=== PATIENT | female | born 1955 | race Caucasian/White ===

== ENCOUNTER 2022-05-30 08:44 | Observation (INO) ==
--- NOTE | 2022-04-23 09:03 | PAT Medication Instructions ---
Medication Instructions Date of Service April 23, 2022 Home Medications cholecalciferol (vitamin D3) 125 mcg (5,000 unit) tablet (Vitamin D3) 125 mcg PO QDL lisinopril 10 mg tablet 10 mg PO QAM calcium carbonate 600 mg-vitamin D3 5 mcg (200 unit) tablet 2 tab PO QDL folic acid 1 mg tablet 1 mg PO QAM infliximab-axxq 100 mg intravenous solution (Avsola) 100 mg IV UD methotrexate sodium 10 mg tablet 12.5 mg PO WK STOP 7 days before surgery methotrexate sodium 10 mg tablet 12.5 mg PO WK ASK your prescriber and surgeon infliximab-axxq 100 mg intravenous solution (Avsola) 100 mg IV UD DO NOT take the morning of surgery cholecalciferol (vitamin D3) 125 mcg (5,000 unit) tablet (Vitamin D3) 125 mcg PO QDL lisinopril 10 mg tablet 10 mg PO QAM calcium carbonate 600 mg-vitamin D3 5 mcg (200 unit) tablet 2 tab PO QDL folic acid 1 mg tablet 1 mg PO QAM Other Notes NOTHING TO EAT OR DRINK AFTER MIDNIGHT. If you have any questions please call us at [phone] or [phone] or [phone] or [phone]
--- NOTE | 2022-04-28 09:07 | Anesthesiology Consultation ---
Date of Service April 28, 2022 Assessment & Plan (1) Encounter for pre-operative examination: - COVID screening: Per assessment on 04/28: No known COVID-19 positive contacts. Travel screen negative. Pt vaccinated. Pt had congestion, cough 03/2022 (04/15- home test was negative as was 's home test). No Covid symptoms in past 10+ days. Advised patient recommendation to obtain formal Covid testing at PAT visit 04/28 given possibility of DOS Farfan testing in case symptoms 03/2022 were in fact Covid. Pt declines/understands recommendation- aware of possibility of DOS cancellation if preop Covid testing needed/comes back positive DOS. - Outpatient joint assessment: Pt currently scheduled for inpatient pathway. If surgeon requests review for outpatient joint pathway, patient is acceptable candidate for outpatient joint program from anesthesia standpoint pending surgeon's office assessment of pt motivation/strong home support/completion of same day joint program preop requirements. Chart Review Chart Review: Acceptable Risk for Surgery and Patient seen in Pre Admission Testing Teaching & Discussion Pre-Anesthesia Teaching/Discussion Notes: Instructed NPO after midnight before surgery,except medications with 15 cc of water. Medication instructions provided according to the PAT guidelines. History Surgery Operation Date: 05/30/22 10:40 Proposed Procedures p Left Total Hip Arthroplasty - Fuentes Caba MD Height/Weight Height: 5 ft 6 in Weight: 61.3 kg Allergies Allergy/AdvReac Type Severity Reaction Status Date / Time No Known Allergies Allergy Verified 04/22/22 08:50 Medications Home Medications Medication Instructions Recorded Confirmed Last Taken cholecalciferol (vitamin D3) 125 125 mcg PO QDL 01/23/22 04/28/22 01/22/22 mcg (5,000 unit) tablet (Vitamin D3) lisinopril 10 mg tablet 10 mg PO QAM 01/23/22 04/28/22 01/24/22 05:00 calcium carbonate 600 mg-vitamin 2 tab PO QDL 04/22/22 04/28/22 Unknown D3 5 mcg (200 unit) tablet folic acid 1 mg tablet 1 mg PO QAM 04/22/22 04/28/22 Unknown infliximab-axxq 100 mg intravenous 100 mg IV UD 04/22/22 04/28/22 Unknown solution (Avsola) methotrexate sodium 10 mg tablet 12.5 mg PO WK 04/22/22 04/28/22 Unknown 3-in-1 Commode #1 ea 04/28/22 04/28/22 Unknown Wheeled Walker #1 ea 04/28/22 04/28/22 Unknown Past Medical History Medical History Arthritis of left hip Hx of Clostridium difficile infection 10+ years ago, no issues since Hypertension Osteoporosis Ulcerative colitis Reason for infliximab/MTX per pt Exercise / Class Metabolic Activity II 4-5 Yardwork/Stairs/Walk up hill (one FS (no CP, no SOB)) Past Family History Family History Other No family history of adverse response to anesthesia Past Surgical History Surgical History H/O flexible sigmoidoscopy 01/24/22- [facility] [place] [facility]. No issues noted per post-op anesthesia progress note. History of cholecystectomy History of colonoscopy History of esophagogastroduodenoscopy (EGD) History of open reduction and internal fixation (ORIF) procedure left ankle (+ hardware) History of tooth extraction History of wisdom tooth extraction Past Anesthesia History No Hx of Anesthesia Complications and No Family Hx of Anesthesia Complications History of PONV No Hx of PONV and Hx of Motion Sickness (Remote) Social History Smoking Status: Never smoker Do You Dip or Chew Tobacco: No Hx Alcohol Use: No Hx Substance Use: No substance use type: does not use Review of Systems Patient denies chest pain, shortness of breath, dyspnea on exertion, fever, chills, cough, wheezing, palpitations. Physical Exam Vital Signs VITALS BP 120/72 P 96 TEMP 98.5 SP02 96%RA RESP 16 PHYSICAL Full cervical extension range of motion. Full TMJ range of motion. TMD 2.5 finger breaths Mallampati Score 2 Dentition: intact, right lower bridge Lungs: clear throughout to auscultation Cardiac: regular rate and rhythm, no murmurs noted Spine: normal Carotid arteries: negative bruit Extremities: no edema Lab Results Anesthesia Preop Results Results Anesthesia Widget: WBC 4.28 K/ul (4.8-10.8) L 04/28/22 Hgb 11.3 g/dl (12.0-16.0) L 04/28/22 Hct 34.4 % (34.1-44.9) 04/28/22 Plt 620 K/uL (130-400) H 04/28/22 PT 11.5 Seconds (9.0-12.0) 04/28/22 PTT 30.1 Seconds (21.0-31.0) 04/28/22 INR 1.1 (0.9-1.1) 04/28/22 Blood Type O Positive 04/28/22 Antibody Screen NEGATIVE 04/28/22 Testing Laboratory Results 04/21/22 SODIUM 137 POTASSIUM 3.9 CHLORIDE 101 CO2 25 BUN 9 CREATININE 0.7 GLUCOSE 94 Electrocardiogram Date: 04/28/22 NSR at 84bpm. Right superior axis deviation. Chest X-Ray Date: 01/29/22 Findings: + NAD COVID-19 Risk Screen Screening Information COVID-19 Screen Date: 04/28/22 Exposure 21 Days Family/Household +COVID Last 21 Days: No Exposure 10 Days Any COVID Exposure Last 10 Days: No Symptoms Last 10 Days Experienced COVID Sx Last 10 Days: No + COVID 0-90 Days COVID + in Last 0-90 Days: No
--- NOTE | 2022-05-24 11:04 | History and Physical Report ---
DATE OF ADMISSION: 05/30/2022 CHIEF COMPLAINT: Bilateral hip pain and discomfort, left side greater than right. HISTORY OF PRESENT ILLNESS: The patient is a 66-year-old female who has an underlying diagnosis of u lcerative colitis, who presents for treatment of her hips. She has got about a 2-year history of gra dually progressing increasing hip pain and discomfort, left side a bit worse than the right. She use d to go out and walk with her on a regular basis, but unable to do that due to the progressiv e increasing hip pain and discomfort. She is actually resorted to using a cane for quite some time a s a result. She has been through therapy, which did not help at all. She did have an intraarticular injection, which gave her some temporary relief only. This has become less successful over time. S he is now looking for definitive treatment. She has been pretty miserable lately. PAST MEDICAL HISTORY: 1. Ulcerative colitis. 2. Hypertension. PAST SURGICAL HISTORY: Includes: 1. Cholecystectomy. 2. Ankle surgery in 2003. ALLERGIES: None. CURRENT MEDICATIONS: Include: 1. Lisinopril. 2. Methotrexate. 3. Infliximab. SOCIAL HISTORY: A 66-year-old female who lives in [place]. She is retired. Does not smoke. Two children. FAMILY HISTORY: Noncontributory. REVIEW OF SYSTEMS: Significant for ulcerative colitis. No chest pain or shortness of breath. No hi story of DVT or PE. No known bleeding problems. PHYSICAL EXAMINATION: GENERAL: Shows a pleasant middle-aged female. Looks to be in good health. HEENT: Benign. NECK: Supple. No lymphadenopathy. LUNGS: Clear to auscultation. HEART: Regular rate and rhythm. ABDOMEN: Soft, nontender, nondistended. EXTREMITIES: Grossly neurovascularly intact except as follows: Examination of both hips revealed pa emily walks with a markedly antalgic gait. Comes in using a cane, but has trouble even walking with that. She does have some degree of pelvic obliquity. Examination of the left hip reveals it to be s everal centimeters short compared to the right. She has got some degree of pelvic obliquity. Very s tiff hip with limited motion. She has got pain with any type of hip motion. She is neurologically i ntact. Examination of the right hip reveals similar stiffness. Less pain with motion, but painful. Stiff. No knee effusion. She is neurologically intact. X-RAYS: X-rays of both hips reveal advanced bilateral hip DJD. She has got advanced disease in both hips. The left side is dysplastic with some superior femoral head subluxation and flattening. Diff use osteopenia. ASSESSMENT: A 66-year-old female with underlying ulcerative colitis and osteoporosis with advanced b ilateral hip degenerative joint disease. Left side is a bit worse than the right. She does have cristina e degree of leg length discrepancy due to the subluxation. She has some pelvic obliquity, which make s this worse. She has failed conservative treatment and would like to proceed with hip replacement s urgery, specifically the left hip. PLAN: We will take her to the operating room and do left total hip replacement. The risks and benef its of this procedure were explained to the patient and include but not limited to DVT, PE, , in fection, neurological injury, vascular injury, bleeding problem, pain, limited range of motion, stiff ness, failure to relieve her symptoms, incomplete relief of symptoms, need for further surgery in the future. The patient understands and desires to proceed. Informed consent was obtained. We will have both uncemented and cemented implants available. Her bone density does not look great. She is on osteoporosis medicine. We will use aspirin twice a day for DVT prophylaxis. She will sta y in the hospital likely overnight with discharge on postoperative day #1 if doing okay. Job ID: [id number]
--- NOTE | 2022-05-29 16:17 | History & Physical Bridge Note ---
Date of Service May 29, 2022 History & Physical Bridge Note I have examined the patient, reviewed the History & Physical and in the interval since the performance of the History & Physical I have noted the following changes of clinical significance: no changes noted other than the fact that her pain has progressed such that she is having difficulty even getting around with cane and walker. This patients hip problem is no longer elective, but essential to regain mobility and treat her severe pain which is keeping her up a night as well. This supports the medical necessity of this procedure to be done now, with no further delay.
[~2022-05-30 08:44] MED LIST: ACETAMINOPHEN 500 MG TAB PO SCH; BUPIVACAINE 0.5 % 5 MG/1 ML PF 10ML VIAL ONE; CeleBREX 200 MG CAP PO SCH; FAMOTIDINE 20 MG TAB PO SCH; LR 500ML BOLUS, THEN 15ML/HR IV SCH; LR 60ML/HR IV SCH; METOCLOPRAMIDE HCL 10 MG TABLET PO SCH; Scopolamine 1 MG TDSY TD SCH; TRANEXAMIC ACID 1,000 MG **IV Pre-op IV SCH; ceFAZolin 2000MG 2,000 MG/15 ML SYR IV SCH
--- NOTE | 2022-05-30 08:59 | History & Physical Bridge Note ---
Date of Service May 30, 2022 History & Physical Bridge Note I have examined the patient, reviewed the History & Physical and in the interval since the performance of the History & Physical I have noted the following changes of clinical significance: no changes noted
[2022-05-30] MEDS ORDERED: MIDAZOLAM HCL 1 MG/ML 2ML VIAL ONE ×2 (10:40→12:28)
[2022-05-30] MEDS ORDERED: MoRPHine SULFATE PF 1 MG/ML 10 ML AMP/VIAL ONE (10:40)
[2022-05-30] MEDS ORDERED: NALOXONE HCL 0.08 MG in SYRINGE 1.8 ML IV PRN (11:20)
[2022-05-30] MEDS ORDERED: diphenhydrAMINE 50 MG/ML VIAL IV PRN (11:20)
[2022-05-30] MEDS ORDERED: MoRPHine SULFATE PF 1 MG/ML 10 ML AMP/VIAL INT SPINAL ONE (11:20)
[2022-05-30] MEDS ORDERED: MEPERIDINE HCL 25 MG/ML CARP/VIAL IV PRN (11:20)
[2022-05-30] MEDS ORDERED: KETOROLAC 30 MG/ML VIAL IV PRN (11:20)
[2022-05-30] MEDS ORDERED: NALBUPHINE HCL INJ 10 MG/ML AMP IV PRN (11:20)
[2022-05-30] MEDS ORDERED: NALOXONE HCL 1 MG in SODIUM CHLORIDE 0.9% 1000ML 1,000 ML IV PRN (11:20)
[2022-05-30] MEDS ORDERED: LACTATED RINGER'S 500 ML IV PRN (11:20)
[2022-05-30] MEDS ORDERED: NALOXONE HCL 0.4 MG/1 ML VIAL/CARP IV PRN (11:20)
[2022-05-30] MEDS ORDERED: ePHEDrine sulfate 50 MG/ML AMP IV PRN (11:20)
[2022-05-30] MEDS ORDERED: BUPIVACAINE/EPINEPHRINE 0.5% MPF 1:200,000 30 ML VIAL ONE (11:21)
[2022-05-30] MEDS ORDERED: SODIUM CHLORIDE 0.9% 1000ML 1,000 ML IV SCH (11:30)
[2022-05-30] MEDS ORDERED: DC INTRASPINAL MORPHINE SCH (11:30)
[2022-05-30] MEDS ORDERED: NO NARCOTICS OR SEDATIVES SCH (11:30)
[2022-05-30] MEDS ORDERED: LIDOCAINE 2% MPF LOCAL 5 ML VIAL INFIL ONE (12:27)
[2022-05-30] MEDS ORDERED: KETAMINE 50 MG/5 ML SYRINGE ONE (12:38)
[2022-05-30] MEDS ORDERED: fentaNYL citrate 100 MCG/2 ML VIAL ONE (13:00)
[2022-05-30] MEDS ORDERED: ONDANSETRON INJ 2 MG/ML 2 ML VIAL ONE (13:37)
[2022-05-30] MEDS ORDERED: PROPOFOL IV EMULSION 10 MG/ML 20 ML VIAL IV ONE (13:37)
--- NOTE | 2022-05-30 13:41 | Operative Report ---
PG Post Operative Report Pre & Post Diagnosis Operation Date: 05/30/22 10:40 Pre-Op Diagnosis: Left Hip Advanced Degenerative Joint Disease Post-Op Diagnosis: Left Hip Advanced Degenerative Joint Disease I identified the patient and participated in the time-out.: Yes Procedure Operation Date: 05/30/22 10:40 Actual Procedures p Left Total Hip Arthroplasty--Cemented(Left) - Fuentes Caba MD Surgeon Fuentes Caba MD County Adviser Dez North PA-C Estimated Blood Loss 200 Findings Consistent with Post-Op Diagnosis Operative findings revealed advanced left hip DJD. She had extensive grade 4 ibvg-gb-gbre disease of the femoral head and acetabulum. She had a large anterior acetabular osteophyte. Her posterior wall was fairly deficient. She had osteophytes around the femoral head. Moderate-sized joint effusion. A lot of soft tissue laxity in general. Specimens Left femoral head sent for pathology Drains None Anesthesia Type Spinal MAC Complications none Disposition Accompanied Patient To Recovery: No Indications Patient is 66-year-old female with underlying diagnosis of ulcerative colitis. She had a several year increasing left hip pain discomfort has become more debilitating over time. She was already using a cane and even having difficulty getting around using. X-rays show advanced left hip arthritis. She elected proceed with surgical treatment. Description of Procedure Operative implants consist of: 1. Biomet G7 size 46 mm acetabular shell. 2. 6.5 cancellous acetabular screws 1 of 35 mm length by 20 mm length. 3. Preston hole shift stacker. 4. Highly cross-linked polyethylene liner with a 46 mm outer diameter, 32 mm inner diam with a mahajan placed posterior. 5. DePuy Defiance size 3 high offset femoral stem. 6. +9/32 mm ceramic articular ball. The patient was taken the operating, identified, placed on the operating table supine position protectors were properly padded. IV antibiotics tried by anesthesia team. A spinal anesthetic had been implemented holding area. Morgan catheter was placed in sterile fashion. The patient then placed in the right lateral decubitus position. Axillary roll was placed. A Stulberg hip positioner was used for positioning. The left hip and leg were then prepped and draped in usual sterile fashion. A posterolateral approach to the left hip was then performed through a curvilinear incision centered over the greater trochanter. Sharp dissection Through subcutaneous tissue down below the IT band gluteal fascia the IT band gluteal fascia incised longitudinally in line with skin incision. The underlying greater bursa was excised. The piriformis and external rotators along with the posterior hip joint capsule were then released from the posterior aspect hip as a single layer. Great care was taken throughout the procedure protect the sciatic nerve at all times. Hip was internally rotated and dislocated. Femoral neck osteotomy cut was made with a Final Cut 11 mm above the lesser trochanter. Femoral head was removed and sent for pathology. The femur was retracted anteriorly. Attention drawn the acetabulum. The acetabular labrum was excised. The pulmonary fat was excised. Sequential reaming the acetabular was then performed begin with size 41 and progressing up to 45. We did reamed just a little bit with a 46 reamer and then placed a 46 mm Biomet G7 acetabular shell in about 40 degrees lateral opening and 20 degrees of anteversion. Of note her acetabular bone was quite osteoporotic. It was fixed with two 6.5 cancellous screws. A large anterior osteophyte was removed. Attention drawn the femur. The proximal femur was reamed with a Glassy Pro cutter followed by canal finder and lateralizing reamer. I then broached beginning with size 1 and progressing up to a 3. We got pretty good fit of the 3. We trialed the hip. She had a lot of soft tissue laxity. We elected to use a high offset stem as well as a +9 articular ball in order to recreate her leg lengths and the soft tissue laxity to stability. Even then with this it was fairly lax and we placed a mahajan on the acetabular liner as a result. We elect to place these implants. All trial implants were removed. Preston hole shift stacker was placed. Highly cross- linked polyethylene liner was placed. We did not use a mahajan on the liner was placed posteriorly. A small cement restrictor was then placed down the IM canal the femur. A double batch Palacos G cement was mixed and injected in the canal. A Defiance size 3 high offset femoral stem was then placed. This was held in place until the cement hardened. Once the cement was hardened a +/32 mm ceramic articular ball was placed and the hip was located. It was fully stable but still once again the soft tissues were fairly lax with at least a centimeter shock. The hip was then irrigated extensively. The posterior capsule and external rotators then repaired through drill holes in the posterior trochanter with #2 Tycron suture. The IT band gluteal fascia then closed in 1 PDS suture running fashion for subcutaneous tissue then closed in 2 layers the deep layer #2 Vicryl suture in the subcutaneous tissues with 2-0 Dexon suture in a buried interrupted fashion. Skin was closed skin dharmesh. Leg was then cleaned and dried a sterile Prevena VAC dressing was applied. The patient was then transferred to the recovery room in stable condition. Patient tolerated the procedure well and there were no complications. Dez North, my physician family services assistant, was present for the entire procedure. His assistance was essential and required for appropriate patient positioning, prepping and draping, surgical exposure, performing the technical details of the operation, placement the implants, closure of the wound, and placement of the sterile bandage. I attest to the content of the Intraoperative Record and any orders documented therein. Any exceptions are noted below.
[2022-05-30] MEDS: ONDANSETRON INJ 2 MG/ML 2 ML VIAL IV PRN ×2 (13:51→20:50)
--- NOTE | 2022-05-30 14:05 | Anesthesiology Progress Note ---
Date of Service May 30, 2022 Anesthesia Post Procedure Vital Signs Vital Signs: Temp Pulse Pulse Resp BP Pulse Ox O2 Del Method 05/30/22 13:55 72 18 121/60 92 Room Air 05/30/22 13:45 72 17 110/63 99 Oxymask 05/30/22 13:35 70 16 104/64 99 Oxymask 05/30/22 13:28 97.5 F L 79 25 H 109/62 100 Oxymask 05/30/22 09:27 97.9 F 85 20 119/88 99 Room Air O2 Flow Rate 05/30/22 13:55 05/30/22 13:45 2 05/30/22 13:35 2 05/30/22 13:28 4 05/30/22 09:27 Transfer of Care Handoff Completed per policy Notes Mental Status: alert / awake / arousable and participated in evaluation Patient Amnestic to Procedure: Yes Nausea / Vomiting: adequately controlled Pain: adequately controlled Airway Patency, RR, SpO2: stable & adequate BP & HR: stable & adequate Hydration State: stable & adequate Neuraxial Anesthesia: was administered and sensory block is resolving Anesthetic Complications: no major complications apparent and Pt Satisfied with anesthetic care
--- NOTE | 2022-05-30 14:14 | XRay Report ---
SINGLE VIEW PELVIS; SINGLE VIEW LEFT HIP CLINICAL HISTORY: Postoperative examination. FINDINGS: An AP portable view of the hips and pelvis with a crosstable lateral portable view of the l eft hip are compared to study dated 04/28/2022. A bipolar left hip arthroplasty is in near-anatomic al ignment. At least 2 cortical lag screws transfix the acetabular cup. No acute fracture is identified. There are expected postoperative changes overlying the left hip including skin clips, subcutaneous g as, and soft tissue swelling. Advanced arthritic change is seen in the right hip. A large calcified f ibroid and phleboliths are seen in the pelvis. IMPRESSION: Expected postoperative findings status post left hip arthroplasty. No acute fracture is s een. ACT 112: Negative or not required by law. Electronically signed by: Skinny Artis M.D. 05/30/2022 2:12 PM
[2022-05-30] MEDS ORDERED: [UNRECOGNIZED DRUG - OTHER] IV SCH (15:23)
[2022-05-30] MEDS ORDERED: MAGNESIUM HYDROXIDE SUSP 30 ML UDC PO PRN (15:23)
[2022-05-30] MEDS ORDERED: ALUMINUM/MAGNESIUM SUSP 30 ML UDC PO PRN (15:23)
[2022-05-30] MEDS ORDERED: METOCLOPRAMIDE HCL INJ 5 MG/ML 2 ML VIAL IV PRN (15:23)
[2022-05-30] MEDS ORDERED: bisacodyL 10 MG SUPP PR PRN (15:23)
[2022-05-30] MEDS: SODIUM CHLORIDE 0.9% 1000ML 1,000 ML IV SCH (15:40)
[2022-05-30] MEDS: Scopolamine CHECK PATCH PLACEMENT SCH ×2 (15:41→23:37)
[2022-05-30] MEDS: ASCORBIC ACID 500 MG TAB PO SCH (17:15)
[2022-05-30] MEDS: KETOROLAC 30 MG/ML VIAL IV SCH ×2 (17:16→23:13)
[2022-05-30] MEDS: ACETAMINOPHEN 500 MG TAB PO SCH (17:17)
--- NOTE | 2022-05-30 17:22 | Progress Notes ---
DATE OF SERVICE: 05/30/2022 SUBJECTIVE: A 66-year-old female, postoperative from a left hip replacement. She is doing pretty well. Just pedro luis seated. Has not had any pain yet. No chest pain or shortness of breath. Not feeling dizzy or light headed. OBJECTIVE: VITAL SIGNS: Temperature 36.3. Vital signs stable. PHYSICAL EXAMINATION: GENERAL: Shows a pleasant middle-aged female. She is sitting up in bed. She has got an emesis basi n at her side. LUNGS: Clear to auscultation. HEART: Regular rate and rhythm. ABDOMEN: Soft, nontender, nondistended. EXTREMITIES: Grossly neurovascularly intact except as follows. Examination of the left hip and leg revealed the leg to be well aligned. Dressing is clean, dry, and intact. Thigh is soft and supple. She can dorsiflex and plantarflex her foot appropriately. X-RAYS: X-ray of the left hip from recovery room reviewed. It shows a left hybrid total hip arthrop lasty. Components looked to be in good position. No signs and problems. ASSESSMENT: A 66-year-old female with underlying ulcerative colitis, postop from a left hip replacem ent, doing pretty well. Hip is located. Big issue now is just nausea. PLAN: 1. DVT prophylaxis includes thigh-high TEDs, SCDs, and aspirin twice a day. 2. PT/OT, weightbear as tolerated. Left total hip protocol. 3. Pain control, doing fine with current pain regimen. 4. Nausea. We will continue management. This likely is related to anesthesia as well as pain meds postop. We will try and limit narcotics and give her Zofran. 5. Disposition: Plan to discharge to home with home health when medically stable and recovered. Job ID: [id number]
[2022-05-30] MEDS: ceFAZolin 1000MG 1,000 MG/7.5 ML SYR IV SCH (19:22)
[2022-05-30] MEDS ORDERED: TRANEXAMIC ACID / 0.7% NACL 1,000 MG/100 ML BAG IV SCH (19:30)
[2022-05-30] MEDS: DOCUSATE SODIUM 100 MG CAP PO SCH (20:49)
[2022-05-30] MEDS: ASPIRIN 81 MG ECTAB PO SCH (20:49)
[2022-05-30] MEDS ORDERED: SENNA 8.6 MG TAB PO SCH (21:00)
[2022-05-30] MEDS ORDERED: KETOROLAC 30 MG/ML VIAL IV SCH (22:00)
[2022-05-31] MEDS: SODIUM CHLORIDE 0.9% 1000ML 1,000 ML IV SCH (01:09)
[2022-05-31] MEDS: ceFAZolin 1000MG 1,000 MG/7.5 ML SYR IV SCH (04:35)
[2022-05-31] MEDS ORDERED: diphenhydrAMINE Capsule 25 MG CAP PO PRN (05:20)
[2022-05-31] MEDS ORDERED: traMADol HCL 50 MG TABLET PO PRN (05:20)
[2022-05-31] MEDS ORDERED: ONDANSETRON INJ 2 MG/ML 2 ML VIAL IV PRN (05:20)
[2022-05-31] MEDS ORDERED: NALOXONE HCL 0.4 MG/1 ML VIAL/CARP IV PRN (05:20)
[2022-05-31] MEDS ORDERED: HYDROmorphone INJ 0.5 MG/0.5 ML SYR IV PRN (05:20)
[2022-05-31] MEDS: KETOROLAC 30 MG/ML VIAL IV SCH ×2 (06:05→11:33)
[2022-05-31] MEDS: ACETAMINOPHEN 500 MG TAB PO SCH (06:05)
[2022-05-31 06:49] LABS: Basophils # (auto) 0.02 K/uL (0-0.2); Basophils % (auto) 0.2 %; Eosinophils # (auto) 0.01 K/uL (0-0.50); Eosinophils % (auto) 0.1 %; Hematocrit (blood only) 28.8 % (34.1-44.9); Hemoglobin 9.6 g/dl (12.0-16.0); Immature Granulocytes # (auto) 0.03 K/uL (0.00-0.02); Immature Granulocytes % (auto) 0.3 %; Lymphocytes # (auto) 0.51 K/uL (1.2-3.4); Lymphocytes % (auto) 5.6 %; Mean Corpuscular Hemoglobin 31.8 pg (25.0-34.0); Mean Corpuscular Hgb Conc 33.3 g/dL (32.0-36.0); Mean Corpuscular Volume 95.4 fL (80.0-100.0); Mean Platelet Volume 9.9 fL (9.4-12.3); Monocytes # (auto) 1.06 K/uL (0.24-0.82); Monocytes % (auto) 11.7 %; Neutrophils % (auto) 82.1 %; Platelet Count 228 K/uL (130-400); RDW Coefficient of Variation 14.7 % (11.5-14.5); RDW Standard Deviation 51.8 fL (36.4-46.3); Red Blood Count 3.02 M/uL (3.93-5.22); White Blood Count 9.03 K/ul (4.8-10.8)
[2022-05-31 07:13] LABS: BUN Creatinine Ratio 33.3 (10-20); Creatinine Clr Calc Pharmacy 87.5 ml/min; Est GFR (African American) 110.9 ml/min; Est GFR (Non-African American) 95.7 ml/min; Potassium 4.9 mmol/L (3.5-5.1)
[2022-05-31] MEDS: DOCUSATE SODIUM 100 MG CAP PO SCH (07:48)
[2022-05-31] MEDS: ASCORBIC ACID 500 MG TAB PO SCH (07:49)
[2022-05-31] MEDS: Scopolamine CHECK PATCH PLACEMENT SCH (07:49)
[2022-05-31] MEDS: ASPIRIN 81 MG ECTAB PO SCH (07:49)
[2022-05-31] MEDS ORDERED: dexAMETHasone 10 MG in SYRINGE 0 ML IV SCH (08:00)
--- NOTE | 2022-05-31 08:50 | Progress Notes ---
DATE OF SERVICE: 05/31/2022 SUBJECTIVE: A 66-year-old female, postoperative day 1 from a left hybrid total hip arthroplasty. Ozzie lim is doing well. She has been bothered with some nausea yesterday. It has improved this morning, al though she did have one emesis but feels fine. No real pain. No chest pain or shortness of breath. Not feeling dizzy or lightheaded. OBJECTIVE: VITAL SIGNS: Temperature 36.8. Vital signs are stable. GENERAL: Shows a pleasant elderly female. She is sitting up in her bed at bedside, looks quite comf ortable. Looks very good. LUNGS: Clear to auscultation. HEART: Regular rate and rhythm. ABDOMEN: Soft, nontender, and nondistended. EXTREMITIES: Grossly neurovascularly intact except as follows. MUSCULOSKELETAL: Examination of the left hip reveals the Prevena VAC dressing to be in place. Leg l engths appear equal. Thigh is soft and supple. NEUROLOGIC: She is neurologically intact. LABORATORY DATA: Hemoglobin 9.6. Hematocrit 28.8. Electrolytes are stable. ASSESSMENT: A 66-year-old female postoperative day 1 from a left hybrid total hip arthroplasty, gabrielle collins quite well. A little bit nauseated, but that should pass. PLAN: 1. DVT prophylaxis includes thigh-high TEDs, SCDs, and aspirin twice a day. 2. PT/OT, weightbear as tolerated. Left total hip protocol. 3. Pain control, doing okay with current pain regimen. 4. Disposition: Plan to discharge to home with some home health later today if does okay in therapy . Job ID: [id number]
[2022-05-31] MEDS ORDERED: FOLIC ACID 1 MG TAB PO SCH (09:00)
[2022-05-31] MEDS ORDERED: lisinopril 10 MG TAB PO SCH (09:00)
[2022-05-31] MEDS ORDERED: DOCUSATE SODIUM/SENNA 50/8.6MG TAB PO SCH (09:00)
[2022-05-31] MEDS ORDERED: MULTIVITAMIN TAB PO SCH (09:00)
[2022-05-31] MEDS ORDERED: CALCIUM 600MG + VIT D 400 IU TAB PO SCH (11:30)
[2022-05-31] MEDS ORDERED: CHOLECALCIFEROL 5,000 UNITS 125 MCG TAB PO SCH (11:30)
--- NOTE | 2022-06-05 07:47 | Discharge Summary ---
Date of Service June 05, 2022 Discharge Data Procedures Performed Operation Date: 05/30/22 10:40 Actual Procedures p Left Total Hip Arthroplasty--Cemented(Left) - Fuentes Caba MD Hospital Course (1) S/P total left hip arthroplasty: This is a 66 year old patient admitted on 05/30/22 and underwent total hip arthroplasty. She tolerated the procedure well and there were no complications. Transferred to the PACU post op and later to the orthopedic floor for further care. She was given ancef for antibiotic prophylaxis. She was also given ARIN stockings, SCDs, and aspirin for DVT prophylaxis. Hemoglobin, hematocrit, and vital signs were monitored during her hospital stay and remained stable. Did not require any blood transfusions. There were no complications during her hospital stay. By post op day #1 the patient was tolerating a regular diet, pain was reasonably controlled with oral pain medicine, and she was participating in physical therapy. On post op day #1 the patient was discharged home and set up with home health care. She was given printed discharge instructions including prescriptions for extra strength tylenol, aspirin, cefadroxil, zofran, senokot, and tramadol. Continue physical therapy, weight bearing as tolerated. Continue hip precautions. Continue ARIN stockings. Follow up approximately 2 weeks post op or sooner if there are problems or concerns. Coding Level of Care Code None Diagnoses S/P total left hip arthroplasty Z96.642
== END 2022-05-31 12:32 | disposition home health service (06) ==
LOC: ASU 08:44 → 3N 08:44